=== PATIENT | female | born 2000 | race Caucasian/White ===

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

== ENCOUNTER → 2021-02-02 | Outpatient (CLI) | payer OTHER ==
[2021-02-02 14:36] LABS: ALBUMIN 3.7 g/dL (3.4-5.0); CREATININE 0.7 mg/dL (0.6-1.0); POTASSIUM 4.7 mmol/L (3.5-5.1); TOTAL BILIRUBIN 0.3 mg/dL (0.2-1.0); TOTAL PROTEIN 6.8 g/dL (6.4-8.2)
== END ==
LOC: LAB 13:47
PROVIDERS: ATTEND Family Medicine
DX: E55.9 Vitamin D deficiency, unspecified (principal)

== ENCOUNTER → 2021-04-23 | Outpatient (CLI) | payer OTHER ==
[2021-04-23 14:05] LABS: ABSOLUTE NEUTROPHILS 1.6 thou/uL (1.4-8.2); BASOPHILS 1.8 % (0.0-2.0); LYMPHOCYTES 45.8 % (24.0-44.0); MCHC 33.2 g/dL (28.0-37.0); MCV 93.4 fL (80.0-100.0); MONOCYTES 12.5 % (1.0-8.0); PLATELET COUNT 182 thou/uL (150-400); POLYS 37.9 % (36.0-66.0); RBC 4.18 mil/uL (4.20-5.00); RDW 13.6 % (10.5-14.5); WBC 4.3 thou/uL (4.0-11.0)
[2021-04-23 14:20] LABS: ALBUMIN 3.7 g/dL (3.4-5.0); CALCIUM 8.6 mg/dL (8.5-10.1); CREATININE 0.7 mg/dL (0.6-1.0); POTASSIUM 4.1 mmol/L (3.5-5.1); TOTAL BILIRUBIN 0.4 mg/dL (0.2-1.0); TOTAL PROTEIN 6.6 g/dL (6.4-8.2)
== END ==
LOC: LAB 11:56
PROVIDERS: ATTEND Family Medicine
DX: E55.9 Vitamin D deficiency, unspecified (principal); R53.82 Chronic fatigue, unspecified